=== PATIENT | male | born 1945 | race African-American/Black ===

== ENCOUNTER 2017-12-28 07:08 | Day surgery (SDC) | payer MEDICARE ==
[~2017-12-28] VITALS: Ht 185.4 cm; Wt 85.7 kg
[~2017-12-28 07:08] MED LIST: AMLO5TAB2 PO; ASPI81TA81; ATOR10TA15 PO; CLOP75TA PO; LISI40TA PO; NAPR500T2 PO; VITA2000 PO
[2017-12-28] MEDS ORDERED: IOHEXOL 350 MG/ML 100 ML BTL (for Cath Lab) OTHER ONE (07:09)
[2017-12-28] MEDS ORDERED: NITR1SUB3 SL (07:52)
[2017-12-28 07:53] VITALS: BP 112/79; PULSE 68; RESP 16; TEMP 97.9; O2SAT 95
[2017-12-28] MEDS ORDERED: NS 1000P @30 MLS/HR (KVO) IV SCH (08:00)
[2017-12-28 08:08] LABS: AUTOMATED NEUTROPHIL # 2.1 TH/MM3 (1.8-7.7); BASOPHIL % 1.2 % (0.0-2.0); EOSINOPHIL # 0.2 TH/MM3 (0-0.4); EOSINOPHIL % 4.3 % (0.0-4.0); HEMATOCRIT 41.3 % (39.0-51.0); HEMOGLOBIN 13.6 GM/DL (13.0-17.0); LYMPH % 27.2 % (9.0-44.0); LYMPHOCYTE # 1.1 TH/MM3 (1.0-4.8); MEAN CELL VOLUME 85.6 FL (80.0-100.0); MEAN CORPUSCULAR HEMOGLOBIN 28.1 PG (27.0-34.0); MEAN CORPUSCULAR HGB CONC 32.8 % (32.0-36.0); MONO % 14.7 % (0.0-8.0); MONOCYTE # 0.6 TH/MM3 (0-0.9); NEUT % 52.6 % (16.0-70.0); PLATELET COUNT 249 TH/MM3 (150-450); RED BLOOD COUNT 4.83 MIL/MM3 (4.50-5.90); WHITE BLOOD COUNT 4.1 TH/MM3 (4.0-11.0)
[2017-12-28] MEDS ORDERED: NITROGLYCERIN INJ 5 ML ONE (08:17)
[2017-12-28] MEDS ORDERED: VERAPAMIL HCL 5 MG/2 ML VIAL ONE (08:17)
[2017-12-28] MEDS ORDERED: HEPARIN SODIUM - IV 10,000 UNITS/10 ML VIAL ONE (08:17)
[2017-12-28] MEDS ORDERED: HEPARIN-NS/PF FLUSH BAG 2,000 ML IV FLUSH ONE (08:17)
[2017-12-28 08:19] LABS: PROTHROMBIN TIME - PATIENT 10.1 SEC (9.8-11.6)
[2017-12-28] MEDS ORDERED: LIDOCAINE HCL 1% PF 30 ML VIAL ONE (08:28)
[2017-12-28 08:30] LABS: BICARBONATE 26.6 MEQ/L (21.0-32.0); CALCIUM 8.6 MG/DL (8.5-10.1); CREATININE 0.95 MG/DL (0.60-1.30)
[2017-12-28] MEDS ORDERED: MIDAZOLAM HCL 2 MG/2 ML VIAL ONE (08:40)
[2017-12-28] MEDS ORDERED: diphenhydrAMINE HCL 50 MG/ML VIAL ONE (08:47)
--- NOTE | 2017-12-28 09:12 | CATHPROC ---
[employer] HIS Report Study Information Study Number Admission Scheduled Start Study Start [id number] Dec 28 2017 7:08AM 12/28/2017 Dec 28 2017 8:08AM [place] Cardiac Catheterization Admit Source Facility Department Other [facility] Physician and Clinical Staff Initial Suzanne Hartmann Internet Sourcer Navdeep Harvey,RN Internet Sourcer Navdeep Hooper,RN Recorder Anyi Oscar,ADJUSTMENT EXAMINER TECH2 Scrub Tonya Shannon,RT(R) Procedures Performed Procedure Location (Site) Vessel Name Coronary Angiograms LCA Left Coronary Coronary Angiograms RCA Right Coronary L Heart Cath LV Gram-hand inj. LV LV Ventricle Equipment Time Barrel Planer Description Size Mfg Part Number Used/Scraped TRANSDUCER, TRUWAVE [id number] 08:32 SCHAFFER DURON * Used W/STOCKCOCK *[id number] *[id number] 08:32 [employer] IND[employer]RIES PACK, CCL CUSTOM * Used *[id number] 08:32 [employer] SUPPORT, ARTERIAL ADULT 93114 *[id number] Used [id number] 08:32 [employer] PACER PEN, SKIN DUAL W/ RULER * Used *[id number] BAND, RADIAL COMPRESSION TR [id number] 08:58 [employer] MEDICAL 24CM Used SHORT 24 *[id number] 08:10 [employer] MEDICAL WIRE, 3MMJ .035 180CM 180CM Used *[id number] 08:32 [employer] MEDICAL WIRE, EXCHANGE 260CM 3MMJ 260CM Used *[id number] 08:32 NAMIC MANIFOLD, 4 PORT * Used *[id number] 08:32 NAMIC TUBING, HIGH PRESSURE 20" 20" Used *[id number] 08:32 [employer] OMNIPAQUE, 350 MG, 150ML 150ML [id number] Used [id number] 08:32 [employer] MEDICAL BLANKET,WARM AIR CCL * Used *[id number] CATHETER, FR5 OPTITORQUE [id number] 08:44 [employer] MEDICAL FR 5 Used RADIAL TIG 4.0 *[id number] SHEATH, FR6 TRANSRADIAL RM*[id number] 08:32 [employer] MEDICAL FR 6 Used SLENDER 10CM *[id number] History: Current Medications Medication Dosage/Unit Route Frequency Last Date/Time Taken ASA LISINOPRIL NORVASC PLAVIX NTG SL History: Allergies Allergy Reaction No Known Drug Allergies History: Risk Factors Family History of Hypertension Dyslipidemia Previous HI Previous Heart Failure Premature CAD Yes Yes No No No Prior Valve Prior PCI Prior PCIDate Prior CABG Surgery No Yes 07/21/2015 No Cerebrovascular Peripheral Artery Chronic Lung On Dialysis Diabetes Disease Disease Disease No No No No No History: Stress Tests Stress or Imaging Studies Performed Yes Standard Exercise Stress Test No Stress Echo No Stress Test SPECT Stress Test SPECT Result Stress Test SPECT Ischemia Risk/Extent Yes Positive Intermediate Stress Test CMR No Cardiac CTA Coronary Calcium Score No No History: Other Current Smoker Method Quit Packs a Day Years Used Pack Years No Cigarettes 10 Years Ago 1 27 Labs Hgb (g/dl) Hct (%) RBC (MIL/MM3) WBC (l/cumm) Platelets (thousands) 11.60-17.00 35.00-51.00 4.00-5.90 4.00-11.00 150.00-450.00 13.6 41.3 4.8 4.1 249 Glucose (mg/dl) BUN (mg/dl) Creatinine (mg/dl) BUN:Creatinine (1:x) 74.00-106.00 7.00-18.00 0.50-1.30 10.00-20.00 84 19 0.9 21.1 Na (meq/l) K (meq/l) Cl (meq/l) CO2 (mmol/L) Ca (mg/dl) 136.00-145.00 3.50-5.10 98.00-107.00 21.00-32.00 8.50-10.10 141 4.5 107 26.6 8.6 PT (sec) PTT (sec) INR (PTT:PT) 9.80-11.60 24.30-30.10 0.90-1.10 10.1 26.4 1 CPK-MB (ng/ML) 0.50-3.60 Not Drawn Medication Medication Total Dose (Bolus/Oral) Medication Total Dosage/Unit 1% XYLOCAINE 20 mL BENADRYL 25 mg RADIAL COCKTAIL 5 mL (Bolus) Medications (Bolus/Oral) Medication Time Given Dosage/Unit Administered By Reason 1% XYLOCAINE 12/28/2017 8:47:28 AM 20 mL Patient arrived on 20 mL 1% XYLOCAINE via Subcutaneous. BENADRYL 12/28/2017 8:47:46 AM 25 mg Candice, Navdeep 25 mg BENADRYL given in lab by Navdeep Harvey RN in Left Wrist via Peripheral IV. Ordered by Salvador Lynn. RADIAL COCKTAIL 12/28/2017 8:48:17 AM 5 mL (Bolus) Suzanne Lynn 5 mL (Bolus) RADIAL COCKTAIL given in lab by Suzanne Lynn in Right Radial via Radial. Using [Solutio n Name]. Reason: Ntg 100mcg Verapamil 2.5mg Heparin 1000U. Medication (Drip) Medication Time Given Dosage/Unit Concentration/Unit Diluent (ml) Solutio n IV Solutions 12/28/2017 8:26:45 AM 0 mL (IV) 500 NaCl .9 Patient arrived on IV Solutions in Left Wrist via Peripheral IV. Pump/Drip Flow = 20 ml/hr using NaCl .9. Initial Case Assessment Cardiovascular HR Rhythm NIBP Chest Pain 58 sb 104/68 0 Circulatory - Right Pulses Dorsalis Pedis Femoral Radial 2 2 2 Scale (0,1,2,3,4,d) Scale (0,1,2,3,4,d) Neurological State Oriented to time-place- Alert Moves all extremities person Respiration - General Respiration Rate SpO2 (%) (B/min) 15 98 Final Case Assessment Cardiovascular HR Rhythm Chest Pain 57 sb 0 Circulatory - Right Pulses Dorsalis Pedis Femoral Radial 2 2 2 Scale (0,1,2,3,4,d) Scale (0,1,2,3,4,d) Neurological State Oriented to time-place- Alert Moves all extremities person Respiration - General Respiration Rate SpO2 (%) (B/min) 13 97 Chronological Log Time Study Chronological Log 8:15:03 Patient arrived via Bed. 8:15:05 Patient Name, D.O.B, / Armband Verified By R.N. 8:15:06 Consent signed by the physician and the patient and verified by the [facility] staff. 8:15:07 Pre-op and post- op instructions given; patient acknowledges understanding of instructions. 8:15:08 Verbal Stimulation=2 Physical Stimulation=2 Airway=2 Respiration=2 TOTAL=8. (0=absent, 1=li mited, 2=present) 8:15:13 Presedation assessment performed by [facility] RN. 8:15:15 Patient has been NPO for More than 6Hrs. 8:15:17 Skin Breakdown-none per patient 8:15:18 Isabela Prominences Protected 8:21:34 Reference ECG taken Vitals capture started with the following parameters, Patient=Adult, Interval=5 min, Initial Pre atfon=202 mmHg, 8:24:58 Deflation Rate=5 mmHg, Cuff placed on Left Arm 8:25:33 HR=57 bpm, IXDV=721/66 mmhg, SpO2=98.0 %, Resp=13 B/min 8:26:30 A # 20 IV was noted in the Wrist (left). Grade = 0 8:26:45 Patient arrived on IV Solutions in Left Wrist via Peripheral IV. Pump/Drip Flow = 20 ml/hr u sing NaCl .9. 8:30:28 HR=55 bpm, RUWU=976/68 mmhg, SpO2=99 %, Resp=14 B/min 8:32:04 Right groin and right radial prepped with 2% chlorhexidine, and draped after a 3 min. waitin g time. 8:34:39 History and physical on the chart or being dictated. Assessment: Initial Case, HR=58 BPM, Rhythm=sb, YUQR=067/68 mmhg, Chest Pain=0 Right Pulses: Tamir Ped=2, Femoral=2, Radial=2 8:34:40 Neurological: State=Alert, Ox3, OCHOA Respiration: Resp=15 B/min, SpO2=98 % 8:35:29 HR=58 bpm, TRFO=506/68 mmhg, SpO2=97 %, Resp=9 B/min 8:35:58 Pressure channel 1 zeroed. 8:40:28 HR=55 bpm, RACV=987/65 mmhg, SpO2=97 %, Resp=13 B/min 8:42:20 MD paged 8:42:21 MD responded 8:42:38 MD arrived. 8:45:29 HR=59 bpm, PDVS=646/66 mmhg, SpO2=96 %, Resp=5 B/min 8:46:34 NIBP STAT measurement started. Time Out. Correct patient, correct procedure, correct physician, power injector loaded, or not l oaded with contrast with 8:47:03 surgical team present. Time Out Concurred by MD and individual staff in procedure. 8:47:05 HR=55 bpm, RPMV=465/63 mmhg, SpO2=95.0 %, Resp=15 B/min 8:47:26 Case Start 8:47:28 Patient arrived on 20 mL 1% XYLOCAINE via Subcutaneous. 8:47:29 Access site was Radial Artery. right A SHEATH, FR6 TRANSRADIAL SLENDER 10CM FR 6 was advanced into the Fem Art (right) using the Perc utaneous 8:47:41 technique. 8:47:46 25 mg BENADRYL given in lab by Navdeep Harvey RN in Left Wrist via Peripheral IV. Ordered by Suzanne Lynn. 5 mL (Bolus) RADIAL COCKTAIL given in lab by Suzanne Lynn in Right Radial via Radial. Using [So lution Name]. Reason: 8:48:17 Ntg 100mcg Verapamil 2.5mg Heparin 1000U. A CATHETER, FR5 OPTITORQUE RADIAL TIG 4.0 FR 5 was advanced over a wire. OMNIPAQUE, 350 MG, 150M L 150ML 8:48:30 was used for injections. 8:50:09 The LCA was injected and visualized at various angles. OMNIPAQUE, 350 MG, 150ML 150ML used. 8:50:32 HR=59 bpm, XZWX=761/63 mmhg, SpO2=96 %, Resp=19 B/min Recorded Pressure: Ao, HR=59, Condition=Condition 1 8:50:33 (Aorta) Ao 91/62/76 8:52:21 The RCA was injected and visualized at various angles. OMNIPAQUE, 350 MG, 150ML 150ML used. After removing the current catheter a MPA-2 INFINITI CATHETER FR 6 was advanced over a WIRE, EXC HANGE 260CM 8:53:07 3MMJ 260CM. Recorded Pressure: LV, HR=61, Condition=Condition 1 8:55:11 (Left Ventricle) LV 116/5/13 8:55:29 HR=62 bpm, TBRL=373/70 mmhg, SpO2=94.0 %, Resp=14 B/min 8:55:33 The LV was manually injected with 10 cc's and visualized. OMNIPAQUE, 350 MG, 150ML 150ML use d. Recorded Pressure: LV, Ao, HR=63, Condition=Condition 1 8:55:45 (Left Ventricle) LV 102/5/13, (Aorta) Ao 104/65/83 8:55:50 Catheter was removed 8:57:15 Case End Assessment: Final Case, HR=57 BPM, Rhythm=sb, Chest Pain=0 Right Pulses: Tamir Ped=2, Femoral=2, Radial=2 8:59:44 Neurological: State=Alert, Ox3, OCHOA Respiration: Resp=13 B/min, SpO2=97 % Radial Compression Device Used. 11 mLs of air placed in BAND, RADIAL COMPRESSION TR SHORT 24 2 4CM. Affected 9:00:04 hand 96 % O2 saturation. 9:00:30 HR=57 bpm, WTND=101/75 mmhg, SpO2=96 %, Resp=13 B/min 9:04:25 No case complications noted. 9:04:26 Cine recording checked. 9:04:28 Bedside Report will be given. 9:04:35 A Left Heart Cath was performed. 9:05:15 Vitals capture stopped. 9:06:39 Patient moved to stretcher 9:06:44 Patient transported to DOCU End Study - Maximum Contrast Load Max Contrast Load (mL) 476.0 End Study - Radiation Exposure Fluoro Time (minutes) 2.1 End Study - Sheaths Sheaths Pulled By Sheath Hold Time (min) Tonya Shannon End Study - Patient Disposition Complications Transferred To Interventional Outcome No Telemetry Bed No attempt made
[2017-12-28] MEDS ORDERED: SODIUM CHLOR 0.9% 1000 ML INJ 400 ML IV ONE (09:15)
--- NOTE | 2017-12-28 09:22 | MA ---
cc: Suzanne Lynn MD DATE: 12/28/2017 INDICATIONS FOR PROCEDURE: The patient is a 72-year-old with chest discomfort with positive stress test for ischemia. PROCEDURE: 1. Left heart catheterization. 2. Angiogram. 3. Left ventriculogram. METHOD: After obtaining informed consent, the patient was systemically heparinized, brought to the culture media laboratory assistant. The right radial area sterilized with sterile drapes. 1% Xylocaine used to locally anesthetize the area. A 6-Swiss sheath was used to access the radial artery. PICC catheter, [place] catheter 5-Swiss used to intubate the left main and intubate the right coronary artery. Multiple views performed, left ventriculogram and pressure measurements. At the end of the procedure, TR band applied after taking the sheath out. Sent back to his room in stable condition. No complications. I. CORONARY ANGIOGRAM: Left main coronary artery is a medium-sized vessel, bifurcates into LAD,and left circumflex coronary arteries. Left main has no significant disease. Left anterior descending coronary artery is a medium-sized vessel, tortuous in the mid-segment. Proximally a stent widely open. Very distal close to the apex about 55% stenosis. Left circumflex artery and its branches with no significant disease. Right coronary artery is a large vessel, dominant. Distal segment about 50% stenosis. II. LEFT VENTRICULOGRAM: Ejection fraction estimated to be 55%. No pressure gradient across the aortic valve. Left ventricular end-diastolic pressure is 12. Aortic pressure 100/60. PLAN: Medical management to continue. Sent back to his room in stable condition. POSTOPERATIVE DIAGNOSES: 1. Patent stent in the proximal LAD. 2. 55% distal LAD close to the apex. 3. 50% distal right coronary artery. 4. Preserved systolic performance of the left ventricle. MD THAD Jamil/CHRISTAL , 09:01 AM , 09:20 AM
--- NOTE | 2017-12-28 11:41 | EKG ---
Date Performed: 12/28/2017 Time Performed: 08:04:48 PTAGE: 72 years EKG: Sinus rhythm with bigeminal PACs. Mild nonspecific ST elevation of questionable significance Abnormal ECG NO PREVIOUS TRACING DOCTOR: Peter Jaramillo Interpretating Date/Time 12/28/2017 11:40:57
== END 2017-12-28 12:21 | disposition home or self-care (01) ==
LOC: HDOC 07:08 → HDIC 07:09 → HDOC 12:21
PROVIDERS: ATTEND Internal Medicine Cardiovascular Disease
DX: I25.118 Atherosclerotic heart disease of native coronary artery with other forms of angina pectoris (principal); I10 Essential (primary) hypertension; E78.5 Hyperlipidemia, unspecified; Z79.02 Long term (current) use of antithrombotics/antiplatelets; Z79.82 Long term (current) use of aspirin
CPT/HCPCS: 80048; 85025; 85610; 85730; 93005; 93458; C1769; C1893; J1200; J1644; J2250; Q9967

== ENCOUNTER 2018-08-29 07:55 | Observation (INO) ==
--- NOTE | 2018-08-25 15:00 | MH ---
cc: Meeta Gentile MD DATE OF ADMISSION: 08/29/2018 The patient is scheduled for surgery 08/29/2018. ADMITTING DIAGNOSIS: Osteoarthritic degeneration, left knee, now being admitted for left total knee arthroplasty. ADMISSION HISTORY AND PHYSICAL: The patient is a pleasant 73-year-old male who is being admitted today for total knee arthroplasty of left knee due to osteoarthritic degeneration. OTHER PAST HISTORY: He has a history of seizures, hypertension, heart disease and arthritis. CURRENT MEDICATIONS: Include: 1. Amlodipine. 2. Iron. 3. Vitamin D3. 4. Alysia aspirin. 5. Plavix, which stopped before surgery. He has had a heart stent in 2015. REVIEW OF SYSTEMS: Noncontributory. FAMILY HISTORY: Noncontributory. SOCIAL HISTORY: He does not smoke and drinks alcohol occasionally. ALLERGIES: NO KNOWN ALLERGIES. PHYSICAL EXAMINATION: GENERAL: A 73-year-old male, well-developed, well-nourished x3, complaining of pain in his left knee. VITAL SIGNS: Blood pressure 98/52, pulse 78 and regular, respiration 14, temperature 97.4, pulse oximetry 97% on room air. HEENT: Eyes: PERRLA, EOMI. Ears, nose, mouth: Clear. NECK: Supple. LUNGS: Clear. HEART: Regular rate. ABDOMEN: Soft, positive bowel sounds, nontender. EXTREMITIES: Reveals left knee has crepitance on range of motion lacks 5 degrees short of full extension. He is neurovascularly intact to his toes. IMPRESSION: Severe osteoarthritic degeneration of the left knee. PLAN: Admission for left total knee arthroplasty today. The patient was given prescription for postoperative pain control in the office. Plans are going to rehabilitation center after surgery. Meeta Gentile MD JRR/ct , 02:40 PM , 02:47 PM
[2018-08-29] MEDS ORDERED: Metoprolol Tartrate 25 MG Tablet PO ONE (08:30)
[2018-08-29] MEDS ORDERED: Sodium Chlor 0.9% Inj 500 ML IV.CONT ONE (08:30)
[2018-08-29] MEDS ORDERED: Chlorhexidine Gluconate 2% 1 Pack (2 Cloths) TOPICAL ONE (08:30)
[2018-08-29] MEDS ORDERED: Bupivacaine Liposomal PF 1.3% Inj 20 ML Vial ONE (08:41)
[2018-08-29] MEDS ORDERED: Lidocaine PF 1% Inj 5 ML Vial ONE (08:42)
[2018-08-29] MEDS ORDERED: Sodium Chlor 0.9% Inj 80 ML, Bupivacaine Liposo PF 1.3% Inj 20 ML, Bupivacaine 0.25% In... P-ARTICULR ONE ×3 (08:45)
[2018-08-29] MEDS ORDERED: Chlorhexidine 4% Topical 120 APPLIC/120 ML Bottle TOPICAL SCH (08:45)
[2018-08-29] MEDS ORDERED: SODIUM CHLOR 0.9% IV.SIG SCH (09:00)
[2018-08-29] MEDS ORDERED: TRANEXAMIC ACID IV.SIG SCH (09:00)
[2018-08-29] MEDS ORDERED: ceFAZolin 2 GM Premix Inj 2 GM/50 ML PIGGYBACK IV.SIG SCH (09:00)
[2018-08-29] MEDS ORDERED: ceFAZolin Inj 20 ML ONE (09:11)
[2018-08-29] MEDS ORDERED: Morphine Inj 4 MG/ML Vial IV.PUSH PRN (10:01)
[2018-08-29] MEDS ORDERED: Post-op Orders (for Pharmacy) OTHER STA (10:01)
[2018-08-29] MEDS ORDERED: Bisacodyl 10 MG Supp RECTAL PRN (10:01)
[2018-08-29] MEDS: Tranexamic Acid Inj 1,000 MG in Sodium Chlor 0.9% Inj 100 ML IV.SIG ONE ×2 (11:05→14:00)
[2018-08-29] MEDS ORDERED: fentaNYL Citrate Inj 100 MCG/2 ML Ampul ONE (13:41)
--- NOTE | 2018-08-29 13:48 | P.BOP ---
- Preoperative Diagnosis (1) Osteoarthritis of left knee - Postoperative Diagnosis (1) Status post total left knee replacement using cement Date of procedure: 08/29/18 Procedure: Left Total Knee Arthroplasty Implants: see implant record Anesthesia: GETA Surgeon: Jackeline Gentile MD Warehouse Consultant: Libra Zheng Estimated blood loss (mL): 200 Tourniquet time (min): 59 (300mmHg) Urine output (mL): 0 (no peña) Pathology: none sent Condition: stable Disposition: PACU
--- NOTE | 2018-08-29 13:53 | MP ---
cc: Meeta Gentile MD DATE OF OPERATION: 08/29/2018 ADMITTING DIAGNOSIS: Osteoarthritic degeneration, left knee POSTOPERATIVE DIAGNOSIS: Osteoarthritic degeneration, left knee. PROCEDURE PERFORMED: Left total knee arthroplasty using Consensus components, size 6 femur, 5 tibia, 18 standard insert, size 2 patella, 2 batches of antibiotic-impregnated cement. SURGEON: Meeta Gentile MD PARKER: Libra Zheng APRN. ANESTHESIA: General intubation block. PROCEDURE: After successful induction of anesthesia, the patient is placed on the operating room table in the supine position. The knee is prepped and draped in the usual manner. A tourniquet is inflated at the upper thigh and set to 300 mmHg pressure after exsanguination of the lower extremity. A longitudinal incision is made extending from 3 inches proximal to the superior pole of the patella, across the patella in longitudinal fashion, and down past the insertion of the tibial tubercle into the proximal tibia. The incision is carried down through subcutaneous tissue along the medial aspect of the patella and retinaculum, down through the capsule to expose the knee joint. The patella and patellar tendon are freed up enough to allow the patella to be inverted and retracted off the lateral side of the knee joint. The knee joint is left exposed. Small osteophytes are removed. All soft tissue is removed to allow proper position of the femoral and tibial cutting jig guide. The first femoral jig is then inserted along the distal end of the femur after first measuring to decide whether this is a small, medium, or large component. The notch is then drilled and the tibial cutting guide inserted into the femoral cutting guide, along with the ankle brace to allow for proper measurement of the tibial cutting surface that needed to be resected. Pins are inserted into the tibial cutting jig and femoral cutting jig to hold them in place. An oscillating saw is then used to resect the surface of the tibia. The surface of the tibia is then completely removed using sharp and blunt dissection. The anterior and posterior cuts of the femur are then made as well using an oscillating saw through the cutting guide. All guides are then removed and the varus/valgus angulation cutting guide applied to the femur for proper measurement of the proper amount of valgus. The anterior cutting guide for the femur is then inserted at the anterior femoral cuts made. Next, the first block trial is inserted into the femur to allow for proper condyle drill holes to be made which are then made followed by removal of the bone between the condyles using an oscillating saw as well as the bone removed at the most posterior surface of the condyle. After this, this guide is removed and the chamfer cuts made using the chamfer cutting guide from both anterior and posterior. Next, the femoral trial is then inserted, the tibial surface reflected anterior to expose the tibial surface and a tibial stem guide is inserted after first measuring for a standard, standard plus, large, or large plus surface to be used. After the stem is impacted the trial tibial surface is applied followed by the trial meniscal components. After full range of motion is found with the appropriate length meniscal components varying the patella is prepared by resecting the posterior aspect of the patella using an oscillating saw, inserting a trial. The trial is then removed and the cruciate cutting guide applied using the bur to cut the cruciate cuts. After cruciate cuts are made all trials are removed. The wound is irrigated copiously with antibiotic solution and Water Pik and the actual components inserted into place using the aforementioned components. After the cement has hardened and the components are found to have full range of motion with no instability, the tourniquet is deflated, total tourniquet time being 59 minutes at 300 mmHg pressure. Meticulous hemostasis was achieved. The wound again is irrigated copiously with antibiotic solution. A 120 mL mixture of Exparel, normal saline and 0.25% marcaine plain injected around the joint for extra pain control. The medial collateral ligament at this point was repaired with #2 FiberWire for better fixation of the components and range of motion. The deep fascia approximated with running #2 Quill, subcutaneous tissue approximated with running 3-0 and 4-0 Monocryl and Quill and Prineo dressing. No drain utilized. Estimated blood loss 200 mL. Sponge and suture counts were correct. The patient tolerated the procedure well and left the Operating Room in satisfactory condition. ESTIMATED BLOOD LOSS: 200 mL. COUNTS: Sponge and suture counts were correct. Libra Zheng APRN, was present throughout the entire procedure including patient positioning as well as the procedure itself. The medical necessity of the nurse practitioner restaurant assistant was indicated in this case due to the surgical complexity of the case. Throughout the case, the polysomnographic technologist was working the back table while my assistant director of plant operations was directly assisting me. JMD MARCIE Trejo/shannan , 01:17 PM , 01:23 PM
[2018-08-29] MEDS ORDERED: *morphine SULFATE 4 MG/ML PERIprocedure ONLY ONE ×3 (14:18→15:26)
--- NOTE | 2018-08-29 14:45 | XR ---
EXAM DATE: 08/29/2018 2:39 PM EST AGE/SEX: 73 years / Male INDICATIONS: Post-op total left knee arthroplasty. CLINICAL DATA: This is the patient's initial encounter. Patient reports that signs and symptoms have been present for 1 day and indicates a pain score of 6/10. MEDICAL/SURGICAL HISTORY: None. None. COMPARISON: No prior exams available for comparison. FINDINGS: AP and lateral views of the knee following arthroplasty reveals a prosthesis in anatomic alignment. F racture is not appreciated. Air is present within the joint. CONCLUSION: Status post total knee arthroplasty. Misha Beckwith MD FACR Electronically signed by: Misha Beckwith MD 08/29/2018 2:44 PM EST
[2018-08-29] MEDS: ceFAZolin 1 GM Premix Inj 1 GM/50 ML PIGGYBACK IV.SIG SCH ×2 (15:03→21:52)
--- NOTE | 2018-08-29 17:20 | P.CONIM ---
History of Present Illness Consult date: 08/29/18 Requesting Physician: Jackeline Gentile Reason for Consult: post op medical management for h/o cardiac problems,low bp Primary Care Provider: Marycruz Rasmussen MD History of Present Illness: 73 yo M with h/o CAD,HTN,Hyperlipidemia,Athritis who underwent total lt knee athroplasty on 08/29/18. Dr. Gentile has consulted us for post op medical management given his cardiac comorbidities and I saw and evaluated patient while he was still at the PACU resting. Patient had no complaints at the time, says he was hospitalized because his knee was now' bone to bone' and he had to undergo surgery. He reports no chest symptoms- shortness of breath,leg swelling,chest pain or palpitations prior to his surgery.No headaches,dizziness or visual symptoms. He has not had any changes in his micturition or bowel habits. He had been doing well at home. He reports adherence to his usual home medication. ROS is negative. I reviewed his intra op records, his systolic BP range was 110-150's. His vital signs when I saw him were thus--BP 137/91, heart rate 72, sats 97-99%. Labs are unremarkable except for mild elevation of BUN. Review of Systems Review of Systems: all other systems reviewed are negative [facility] Medical History Medical History Arthritis (Acute) Hx of traumatic brain injury (Acute) Wears dentures (Acute) Surgical History Surgical History H/O umbilical hernia repair (Acute) Hx of heart artery stent (Acute) Social History Social History Substance History: No History of Abuse Second Hand Smoke Exposure: No Smoking Status: Former smoker How Often Do You Have a Drink Containing Alcohol: Monthly or less Recent Travel in [facility] within the Last 8 Weeks: No Recent Out of Country Travel within the Last 8 Weeks: Yes Medications and Allergies Allergies Allergy/AdvReac Type Severity Reaction Status Date / Time No Known Allergies Allergy Verified 08/29/18 08:31 Home Medications Medication Instructions Recorded Confirmed Type amlodipine 2.5 mg PO DAILY 08/26/18 08/29/18 History aspirin [Adult Low Dose Aspirin] 81 mg PO DAILY 08/26/18 08/29/18 History atorvastatin 40 mg PO DAILY 08/26/18 08/29/18 History clopidogrel 75 mg PO DAILY 08/26/18 08/29/18 History lisinopril 10 mg PO DAILY 08/26/18 08/29/18 History Active Medications: Active Medications Hydrocodone Bitart/Acetaminophen ([place] 7.5/325) 1 tab PO Q4H PRN PRN Reason: PAIN LESS THAN 5 ON SCALE Hydrocodone Bitart/Acetaminophen ([place] 7.5/325) 2 tab PO Q6H PRN PRN Reason: PAIN SCALE 5 TO 10 Al Hydroxide/Mg Hydroxide (Milk Of Magnesia Liq) 30 ml PO BID PRN PRN Reason: Mild Constipation Amlodipine Besylate (Norvasc) 2.5 mg PO DAILY [facility] Apixaban (Eliquis) 2.5 mg PO BID [facility] Atorvastatin Calcium (Lipitor) 40 mg PO DAILY [facility] Bisacodyl (Dulcolax Supp) 10 mg RECTAL DAILY PRN PRN Reason: SEVERE CONSITIPATION Chlorhexidine Gluconate (Hibiclens 4% Topical) 1 applicatio TOPICAL ONCE [facility] Stop: 09/02/18 08:44 Last Admin: 08/29/18 08:25 Dose: 1 applicatio Lactated Ringer's (Lr 1000 Ml Inj) 1,000 mls @ 30 mls/hr IV.CONT .Q24H ONE Stop: 08/30/18 08:29 Last Admin: 08/29/18 08:35 Dose: 30 mls/hr Sodium Chloride (Ns Inj) 500 mls @ 30 mls/hr IV.CONT .[id number] ONE Stop: 08/30/18 01:09 Last Admin: 08/29/18 08:54 Dose: Not Given Cefazolin Sodium/Dextrose (Ancef 2 Gm Premix Inj) 2 gm in 50 mls @ 100 mls/hr IV.SIG ADVERTISING MATERIAL DISTRIBUTOR [facility] Stop: 09/02/18 08:59 Last Infusion: 08/29/18 11:05 Dose: Infused Tranexamic Acid 812 mg/ Sodium (Chloride) 108.12 mls @ 200 mls/hr IV.SIG ONCE [facility] Stop: 08/30/18 08:59 Last Infusion: 08/29/18 11:25 Dose: Infused Cefazolin Sodium/Dextrose (Ancef 1 Gm Premix Inj) 1 gm in 50 mls @ 100 mls/hr IV.SIG Q6H [facility] Stop: 08/30/18 03:29 Last Admin: 08/29/18 15:03 Dose: 100 mls/hr Lactated Ringer's (Lr 1000 Ml Inj) 1,000 mls @ 80 mls/hr IV.CONT .[id number] [facility] Last Admin: 08/29/18 14:48 Dose: 80 mls/hr Lactulose (Lactulose Liq) 30 ml PO DAILY PRN PRN Reason: SEVERE CONSITIPATION Lisinopril (Prinivil) 10 mg PO DAILY [facility] Miscellaneous Information ([facility]) 0 each OTHER UNSCH PRN PRN Reason: SEE LABEL COMMENTS Stop: 08/30/18 13:35 Morphine Sulfate (Morphine Inj) 2 mg IV.PUSH Q3H PRN PRN Reason: BREAKTHROUGH PAIN Multivitamins/Minerals (Theragran-M) 1 tab PO BID [facility] Stop: 10/28/18 20:59 Ondansetron HCl (Zofran Odt) 4 mg PO Q6H PRN PRN Reason: NAUSEA OR VOMITING Senna/Docusate Sodium (Maddie-Colace) 1 tab PO BID [facility] Sennosides (Senokot) 17.2 mg PO BID PRN PRN Reason: Moderate Constipation Sodium Chloride (Ns Flush) 2 ml IV.FLUSH BID [facility] Sodium Chloride (Ns Flush) 2 ml IV.FLUSH PRN PRN PRN Reason: FLUSH AFTER USING IV ACCESS Physical Exam Vital signs: Last Vital Signs Temp 97.7 F 08/29/18 13:35 Pulse 71 08/29/18 13:35 Resp 18 08/29/18 13:35 BP 137/94 H 08/29/18 13:35 Pulse Ox 98 08/29/18 13:35 Intake & Output 08/27/18 08/28/18 08/29/18 08/30/18 06:59 06:59 06:59 06:59 Intake Total 1358.12 / 1358.12 Output Total 200 / 200 Balance 1158.12 / 1158.12 Weight 81.2 kg Results Imaging Impressions Knee X-Ray 08/29/18 10:01 CONCLUSION: Status post total knee arthroplasty. Misha Beckwith MD FACR ABG Impressions Knee X-Ray 08/29/18 10:01 CONCLUSION: Status post total knee arthroplasty. Misha Beckwith MD FACR Assessment and Plan Plan 73 yo M with h/o CAD,HTN,Hyperlipidemia,Athritis who underwent total lt knee arthroplasty on 08/29/18. Dr. Gentile has consulted us for post op medical management given his cardiac comorbidities. His medical conditions seem to be stable at this time. Resume ASA/Plavix/Atorvastatin for his CAD His BP is within normal limits presently, his usual medication can be resumed tomorrow morning. Pain management as per primary service. Patient's medical issues are currently stable. Medicine will sign off, feel free to contact us if need arises. Thank you for consulting.
[2018-08-29] MEDS: Multivitamin/Minerals Therapeutic Tablet PO SCH (21:52)
[2018-08-29] MEDS: Senna/Docusate Sodium 8.6/50 MG Tablet PO SCH (21:52)
[2018-08-30] MEDS: ceFAZolin 1 GM Premix Inj 1 GM/50 ML PIGGYBACK IV.SIG SCH (02:56)
[2018-08-30 05:32] LABS: Hematocrit 37.7 % (39.0-51.0); Hemoglobin 12.6 gm/dL (13.0-17.0)
[2018-08-30] MEDS: Lisinopril 10 MG Tablet PO SCH (08:07)
[2018-08-30] MEDS: Senna/Docusate Sodium 8.6/50 MG Tablet PO SCH ×2 (08:08→20:29)
[2018-08-30] MEDS: amLODIPine 5 MG Tablet PO SCH (08:08)
[2018-08-30] MEDS: Multivitamin/Minerals Therapeutic Tablet PO SCH ×2 (08:08→20:29)
--- NOTE | 2018-08-30 09:53 | P.PNOP ---
Subjective Interval history: Patient comfortable today. Not complaining of any pain at the moment. Physical Exam Vital signs: Vital Signs 08/29/18 13:35 08/29/18 13:45 08/29/18 14:00 Temperature 97.7 F Pulse Rate 71 73 69 Respiratory Rate 18 18 20 Blood Pressure 137/94 H 155/96 H 155/85 H Pulse Oximetry 98 98 98 08/29/18 14:15 08/29/18 14:30 08/29/18 15:30 Temperature Pulse Rate 72 76 69 Respiratory Rate 20 20 20 Blood Pressure 138/72 137/73 131/66 Pulse Oximetry 98 98 98 08/29/18 16:30 08/29/18 17:30 08/29/18 20:58 Temperature 98.8 F 98.8 F Pulse Rate 82 84 82 Respiratory Rate 20 20 18 Blood Pressure 139/73 140/80 127/61 Pulse Oximetry 98 98 98 08/29/18 23:34 08/30/18 04:58 08/30/18 08:00 Temperature 98.8 F 98.8 F 99.2 F Pulse Rate 85 85 79 Respiratory Rate 16 18 18 Blood Pressure 129/75 127/72 131/72 Pulse Oximetry 97 98 96 Intake & Output 08/29/18 08/30/18 08/30/18 18:59 06:59 18:59 Intake Total 1358.12 / 1358.12 1832 / 1832 Output Total 200 / 200 850 / 850 Balance 1158.12 / 1158.12 982 / 982 Weight 81.2 kg 99.7 kg Intake: IV 158.12 / 158.12 1150 / 1150 LR 1000 mL Inj 1,000 ML @ 80 1000 / 1000 mls/hr IV.CONT .[id number] [facility] Rx# :[id number] Cyklokapron Inj 812 MG In NS 108.12 / 108.12 Inj 100 ML @ 200 mls/hr IV.SIG ONCE [facility] Rx#:[id number] Ancef 1 GM Premix Inj 1 gm In 150 / 150 50 ml @ 100 mls/hr IV.SIG Q6H [facility] Rx#:[id number] Ancef 2 GM Premix Inj 2 gm In 50 / 50 50 ml @ 100 mls/hr IV.SIG PHYSICIAN CODING SPECIALIST [facility] Rx#:[id number] Oral 682 / 682 Anesthesia Amount 1200 / 1200 Output: Urine 850 / 850 Estimated Blood Loss 200 / 200 Other: Date of Last Bowel Movement 08/28/18 08/28/18 Weight On Admission 81.2 kg - Constitutional no acute distress Results - Labs CBC & Chem 7: 08/30/18 05:17 Laboratory Results - last 24 hr 08/30/18 05:17 Hgb 12.6 L Hct 37.7 L - Imaging Impressions Knee X-Ray 08/29/18 10:01 CONCLUSION: Status post total knee arthroplasty. Misha Beckwith MD FACR Assessment and Plan - Attending Attestation Attending Attestation: Patient sitting up at the edge of his bed today with physical therapy in the room. Dressing is dry and intact and he is neurovascularly intact to his toes. There is no calf tenderness. Plan is for the patient to get physical therapy while in the hospital and eventually be discharged to a alf facility for continuation of care.
[2018-08-31 06:12] LABS: Hematocrit 33.7 % (39.0-51.0); Hemoglobin 11.3 gm/dL (13.0-17.0)
[2018-08-31] MEDS: amLODIPine 5 MG Tablet PO SCH (08:28)
[2018-08-31] MEDS: Multivitamin/Minerals Therapeutic Tablet PO SCH (08:28)
[2018-08-31] MEDS: Senna/Docusate Sodium 8.6/50 MG Tablet PO SCH (08:28)
[2018-08-31] MEDS: Lisinopril 10 MG Tablet PO SCH (08:29)
--- NOTE | 2018-08-31 08:34 | P.PNOP ---
Subjective Interval history: Patient comfortable without complaints today. Physical Exam Vital signs: Vital Signs 08/30/18 12:00 08/30/18 16:00 08/30/18 20:53 Temperature 98.2 F 100.0 F H 99.4 F Pulse Rate 97 H 101 H 104 H Respiratory Rate 22 16 16 Blood Pressure 132/74 125/68 131/73 Pulse Oximetry 95 95 94 L 08/30/18 23:45 08/31/18 04:00 Temperature 99.1 F 98.8 F Pulse Rate 106 H 99 H Respiratory Rate 16 17 Blood Pressure 116/56 L 114/63 Pulse Oximetry 94 L 94 L Intake & Output 08/30/18 08/31/18 08/31/18 18:59 06:59 18:59 Intake Total 680 / 680 Output Total 500 / 500 Balance 180 / 180 Weight 98 kg Intake: Oral 680 / 680 Output: Urine 500 / 500 Stool 0 / 0 Other: Date of Last Bowel Movement 08/28/18 08/29/18 - Constitutional no acute distress Results - Labs CBC & Chem 7: 08/31/18 05:26 Laboratory Results - last 24 hr 08/31/18 05:26 Hgb 11.3 L Hct 33.7 L Assessment and Plan - Attending Attestation Attending Attestation: Dressing dry and intact. No calf tenderness. He is neurovascular intact to his toes. Plan is for patient be discharged to assisted facility later today with instructions for physical therapy and follow-up appointment in the office for recheck.
[2018-08-31 09:40] VITALS: BP 117/64; PULSE 95; RESP 24; TEMP 99.1; O2SAT 95
--- NOTE | 2018-08-31 10:14 | MD ---
cc: Meeta Gentile MD DATE OF DISCHARGE: 08/31/2018 ADMITTING DIAGNOSIS: Osteoarthritic degeneration, left knee. DISCHARGE DIAGNOSIS: Osteoarthritic degeneration, left knee. DISCHARGE SUMMARY IS FOLLOWS: This is a pleasant 73-year-old male who was admitted on 08/29/2018 with osteoarthritic degeneration of the left knee for which he underwent a left total knee arthroplasty on the day of admission. He received a course of prophylactic IV antibiotics within 23 hours of starting the anticoagulation therapy. He continued to improve. Remaining afebrile. Vital signs stable. Neurovascularly intact, tolerating food and fluid well and p.o. pain medication and was discharged to a detention facility on postoperative day number 2 in good condition with instructions for continuation of care and followup appointment in the office for a recheck. J. MD MARCIE العراقي/cielo , 08:46 AM , 08:50 AM
== END 2018-08-31 10:06 ==
LOC: HSDC 07:55 → HSDI 07:55 → N06 18:01
PROVIDERS: ADMIT Surgery; ATTEND Surgery